=== PATIENT | female | born 1995 | race Caucasian/White ===

== ENCOUNTER 2017-01-30 15:36 | Emergency (ER) | payer OTHER ==
[2017-01-30] MEDS ORDERED: NS 0.9% 1000 ML* 1,000 ML IV SCH (16:45)
[2017-01-30 17:10] LABS: Hematocrit 37 % (35-47); Hemoglobin 12.6 g/dl (12.0-16.0); Mean Corpuscular HGB Conc 34 g/dl (31-36); Mean Corpuscular Hemoglobin 30 pg (27-31); Mean Corpuscular Volume 91 fL (80-97); Mean Platelet Volume 8 um3 (7.4-10.4); Red Blood Count 4.14 10^6/ul (4.0-5.4); Red Cell Distribution Width 14 % (10.5-15); White Blood Count 6.8 10^3/ul (3.5-10.8)
[2017-01-30 17:27] LABS: ALT 12 U/L (7-52); AST 18 U/L (13-39); Albumin 4.3 g/dL (3.2-5.2); Alkaline Phosphatase 39 U/L (34-104); Amylase 41 U/L (29-103); Anion Gap 7 mmol/L (2-11); BUN/Creatinine Ratio 14.5 (8-20); Blood Urea Nitrogen 10 mg/dL (6-24); C Reactive Protein < 1.00 mg/L (< 5.00); CO2 Carbon Dioxide 24 mmol/L (22-32); Calcium 9.7 mg/dL (8.6-10.3); Chloride 106 mmol/L (101-111); EGFR African American 139.5 (>60); EGFR Non-African American 108.5 (>60); Globulin 3.3 g/dL (2-4); Glucose 84 mg/dL (70-100); Lipase 31 U/L (11.0-82.0); Sodium 137 mmol/L (133-145); Total Protein 7.6 g/dL (6.4-8.9)
--- NOTE | 2017-01-30 17:27 | RAD ---
INDICATION: Right upper quadrant pain. COMPARISON: There are no prior studies available for comparison. TECHNIQUE: Multiple real-time images of the right upper quadrant were obtained. FINDINGS: The gallbladder appear normal. No gallbladder wall thickening or pericholecystic fluid is present. No intra or extrahepatic ductal distention is present. The common bile duct is not well visualized. The liver is normal in size without significant focal abnormality. The pancreas is obscured by overlying bowel gas. The right kidney is normal in size without evidence for hydronephrosis. IMPRESSION: NORMAL EXAM OF THE GALLBLADDER.
[2017-01-30 17:59] LABS: Urine Bacteria Absent (Absent); Urine Bilirubin Negative (Negative); Urine Glucose Negative (Negative); Urine Nitrite Negative (Negative)
[2017-01-30] MEDS ORDERED: Polyethylene Glycol 3350* 17 GM PACKET PO PRN (18:45)
--- NOTE | 2017-01-30 18:46 | RAD ---
INDICATION: Abdominal pain. COMPARISON: There are no prior studies available for comparison. TECHNIQUE: Supine and upright views of the abdomen were obtained. FINDINGS: The small bowel and colon appear nondistended. No free intraperitoneal air is seen. There is a moderate amount retained stool present. No abnormal calcifications are seen. IMPRESSION: NO EVIDENCE FOR ACUTE FINDING.
--- NOTE | 2017-01-30 18:55 | ED ---
Natividad De La Rosa Emily, scribed for Stone Joseph MD on 01/30/17 at 1602 . Abdominal Pain/Female - HPI Summary HPI Summary: This patient is a 21 year old F presenting to [facility] with a chief complaint of R sided abd pain that began earlier today. The CC is described as constant. The patient rates the pain 1/10 in severity. Symptoms aggravated by lying down. Symptoms alleviated by nothing. Patient denies nausea, vomiting, fever, and vaginal discharge/bleeding. Patients last menstrual period ended 2 weeks ago. - History of Current Complaint Chief Complaint: EDAbdPain Stated Complaint: RT ABD PAIN-SENT BY 5 STAR Time Seen by Provider: 01/30/17 15:52 Hx Obtained From: Patient Onset/Duration: Sudden Onset, Lasting Hours, Still Present Timing: Constant Severity Initially: Mild Severity Currently: Mild Pain Intensity: 2 Pain Scale Used: 0-10 Numeric Location: Other - Right sided Radiates: No Aggravating Factor(s): Other: - Lying down Alleviating Factor(s): Nothing Associated Signs and Symptoms: Negative: Fever, Vaginal Bleeding, Vaginal Discharge, Nausea, Vomiting Allergies/Adverse Reactions: Allergies Allergy/AdvReac Type Severity Reaction Status Date / Time Amoxicillin Allergy Edema Verified 01/30/17 16:29 PMH/Surg Hx/FS Hx/Imm Hx Previously Healthy: Yes Opthamlomology History: Denies: Hx Legally Blind EENT History: Denies: Hx Deafness Infectious Disease History: No Infectious Disease History: Denies: Traveled Outside the [place] in Last 30 Days - Family History Known Family History: Positive: Diabetes - Social History Occupation: Student Alcohol Use: Occasionally Hx Tobacco Use: No Smoking Status (MU): Never Smoked Tobacco Review of Systems Negative: Fever Positive: Abdominal Pain. Negative: Vomiting, Diarrhea Positive: other - Negative vaginal bleeding. Negative: discharge All Other Systems Reviewed And Are Negative: Yes Physical Exam - Summary Physical Exam Summary: VITAL SIGNS: Reviewed. GENERAL: Patient is a well-developed and nourished female who is lying comfortable in the stretcher. ~Patient is not in any acute respiratory distress. HEAD AND FACE: Normocephalic and atraumatic. EYES: PERRLA, EOMI x 2, No injected conjunctiva. EARS: Hearing grossly intact. Ear canals and tympanic membranes are WNL. MOUTH: Oropharynx within normal limits. NECK: Supple, trachea is midline, no adenopathy, no JVD. CHEST: Symmetric, no tenderness at palpation LUNGS: Clear to auscultation bilaterally. No wheezing or crackles. CVS: RRR, S1 and S2 present, no murmurs or gallops appreciated. ABDOMEN: RUQ tenderness. No signs of distention. Positive bowel sounds. No rebound no guarding, and no masses palpated. No abdominal bruit or pulsations. EXTREMITIES: FROM in all major joints, no edema, no cyanosis or clubbing. NEURO: Alert and oriented x 3. No acute neurological deficits. Speech is normal. SKIN: Dry and warm Triage Information Reviewed: Yes Vital Signs On Initial Exam: Initial Vitals Temp Pulse Resp BP Pulse Ox 98.7 F 69 18 117/91 100 01/30/17 15:39 01/30/17 15:39 01/30/17 15:39 01/30/17 15:39 01/30/17 15:39 Vital Signs Reviewed: Yes Diagnostics - Vital Signs Vital Signs Temp Pulse Resp BP Pulse Ox 01/30/17 15:39 98.7 F 69 18 117/91 100 - Laboratory Lab Results: Lab Results 01/30/17 01/30/17 01/30/17 Range/Units 17:00 17:00 17:25 WBC 6.8 (3.5-10.8) 10^3/ul RBC 4.14 (4.0-5.4) 10^6/ul Hgb 12.6 (12.0-16.0) g/dl Hct 37 (35-47) % MCV 91 (80-97) fL MCH 30 (27-31) pg MCHC 34 (31-36) g/dl RDW 14 (10.5-15) % Plt Count 260 (150-450) 10^3/ul MPV 8 (7.4-10.4) um3 Neut % (Auto) 46.1 (38-83) % Lymph % (Auto) 42.7 (25-47) % [place] % (Auto) 9.3 H (1-9) % Eos % (Auto) 1.1 (0-6) % Baso % (Auto) 0.8 (0-2) % Absolute Neuts (auto) 3.2 (1.5-7.7) 10^3/ul Absolute Lymphs (auto) 2.9 (1.0-4.8) 10^3/ul Absolute Monos (auto) 0.6 (0-0.8) 10^3/ul Absolute Eos (auto) 0.1 (0-0.6) 10^3/ul Absolute Basos (auto) 0.1 (0-0.2) 10^3/ul Absolute Nucleated RBC 0.01 10^3/ul Nucleated RBC % 0.1 Sodium 137 (133-145) mmol/L Potassium 4.0 (3.5-5.0) mmol/L Chloride 106 (101-111) mmol/L Carbon Dioxide 24 (22-32) mmol/L Anion Gap 7 (2-11) mmol/L BUN 10 (6-24) mg/dL Creatinine 0.69 (0.51-0.95) mg/dL Est GFR ( Amer) 139.5 (>60) Est GFR (Non-Af Amer) 108.5 (>60) BUN/Creatinine Ratio 14.5 (8-20) Glucose 84 (70-100) mg/dL Calcium 9.7 (8.6-10.3) mg/dL Total Bilirubin 0.30 (0.2-1.0) mg/dL AST 18 (13-39) U/L ALT 12 (7-52) U/L Alkaline Phosphatase 39 (34-104) U/L C-Reactive Protein < 1.00 (< 5.00) mg/L Total Protein 7.6 (6.4-8.9) g/dL Albumin 4.3 (3.2-5.2) g/dL Globulin 3.3 (2-4) g/dL Albumin/Globulin Ratio 1.3 (1-3) Amylase 41 (29-103) U/L Lipase 31 (11.0-82.0) U/L Beta HCG, Quant < 0.60 mIU/mL Urine Color Straw Urine Appearance Clear Urine pH 6.0 (5-9) Ur Specific [place] 1.008 L (1.010-1.030) Urine Protein Negative (Negative) Urine Ketones Trace H (Negative) Urine Blood Negative (Negative) Urine Nitrate Negative (Negative) Urine Bilirubin Negative (Negative) Urine Urobilinogen Negative (Negative) Ur Leukocyte Esterase 1+ H (Negative) Urine WBC (Auto) Trace(0-5/hpf) (Absent) Urine RBC (Auto) Absent (Absent) Ur Squamous Epith Cells Present H (Absent) Urine Bacteria Absent (Absent) Urine Glucose Negative (Negative) Result Diagrams: 01/30/17 17:00 01/30/17 17:00 Lab Statement: Any lab studies that have been ordered have been reviewed, and results considered in the medical decision making process. - Radiology Abdomen Radiology Interpretation Completed By: Radiologist - Abdomen XR read by radiologist reveals no evidence for acute finding. ED physician has reviewed this radiology report and agrees. - Additional Comments Diagnostic Additional Comments: Gallbladder US read by radiologist reveals normal exam of the gallbladder. ED physician has reviewed this radiology report and agrees. Abdominal Pain Fem Course/Dx - Course Course Of Treatment: This patient is a 21 year old F presenting to [facility] with a chief complaint of R sided abd pain that began a few weeks ago. The CC is described as constant. The patient rates the pain 1/10 in severity. Symptoms aggravated by lying down. Symptoms alleviated by nothing. Patient denies nausea , vomiting, fever, and vaginal discharge/bleeding. Patients last menstrual period ended 2 weeks ago. In the ED course an IV access was obtained. Patient was placed in a monitoring manager. Patient was started with IV fluids. Labs without any significant abnormality. UA negative for UTI. RUQ U/S IMPRESSION: NORMAL EXAM OF THE GALLBLADDER. Abdominal X-ray IMPRESSION: NO EVIDENCE FOR ACUTE FINDING. Patient reports that her symptoms have resolved. SInce patient s symptoms resolved and blood work is found within normal limits therefore I don 't believe she is at risk of acute appendicitis. Abdominal pain before discharge the abdomen is soft , tenderness and positive BS. She will return to the Ed if symptoms worsen. I discussed all the findings and test results with the patient. Patient was instructed to return to the emergency room immediately if any of the symptoms return or worsens. They were explained the possibility of an early abdominal pathology which was not detected at this time despite the physical exam and testing. They understand and agree. Abdominal exam before discharge: Soft, NT. No signs of distention. BS present. No rebound no guarding, and no masses palpated. Patient is alert and oriented and hemodynamically stable. Patient is to follow up with primary care physician in the next 2 to 3 days. Patient agree and understands. - Diagnoses Differential Diagnosis: Positive: Appendicitis, Constipation, Gall Bladder Disease, Ovarian Cyst, Pancreatitis, Urinary Tract Infection Provider Diagnoses: Abdominal pain Discharge - Discharge Plan Condition: Stable Disposition: HOME Patient Education Materials: Abdominal Pain (ED) Referrals: [facility], [facility] - [place] [Primary Care Provider] - Additional Instructions: RETURN TO THE EMERGENCY DEPARTMENT FOR CHANGING OR WORSENING SYMPTOMS. The documentation as recorded by the Natividad palma Emily accurately reflects the service I personally performed and the decisions made by , Stone Joseph MD.
[2017-01-30 19:24] VITALS: BP 104/72
--- NOTE | 2017-02-02 12:22 | PN ---
Progress Note - Progress Note Date of Service: 02/02/17 Note: Patient urine culture grew Strept Group B 10-25,000 which is not significant enough to treat and patient is not so no further action needed.
== END 2017-01-30 19:28 | disposition home or self-care (01) ==
LOC: ED 15:36
DX: R10.11 Right upper quadrant pain (principal); Z32.02 Encounter for pregnancy test, result negative; Z88.1 Allergy status to other antibiotic agents
CPT/HCPCS: 36415; 74020; 76705; 80053; 81003; 81015; 82150; 83690; 84702; 85025; 86140; 87077; 87086; 96360; 96361; 99283